=== PATIENT | male | born 1975 | race Caucasian/White ===

== ENCOUNTER 2020-06-09 22:49 | Emergency (ER) | payer SELFPAY ==
[~2020-06-09] VITALS: Ht 170.2 cm; Wt 86.2 kg
[~2020-06-09 22:49] MED LIST: ATEN50TA2 PO
[2020-06-09 22:54] VITALS: BP 132/72
--- NOTE | 2020-06-09 22:56 | NUR ---
To ED bed 12
--- NOTE | 2020-06-09 22:58 | NUR ---
44 Y/O MALE BIB SELF WITH C/O "LEFT SHOULDER DISLOCATION", PATIENT VERBALIZES HAVING "THROBBING" 10/10 NUMERIC PS. WAS NOTED WITH LIMITED RANGE OF MOTION. SENSORY INTACT AND CIRCULATION INTACT. RADIAL PULSES PALPABLE IN BOTH EXTREMITIES. PATIENT WAS OBSERVED CLENCHING/GUARDING LEFT ARM/SHOULDER. CAP REFILL LESS THAN 3 SEC. BED LOCKED AND IN LOWEST POSITION. MEDHX: HTN ALLX: NKA
--- NOTE | 2020-06-09 23:01 | NUR ---
pt taken to Rad via w/c.
[2020-06-09] MEDS ORDERED: fentaNYL citrate 0.05 MG/ML VIAL IVP ONE (23:15)
--- NOTE | 2020-06-09 23:25 | NUR ---
IV STARTED ON PATIENT, TOLERATED THE PROCEDURE WELL.
--- NOTE | 2020-06-09 23:30 | NUR ---
X RAY AT BEDSIDE.
--- NOTE | 2020-06-09 23:40 | NUR ---
ER MD AT BEDSIDE EVALUATING PATIENT.
[2020-06-10] MEDS ORDERED: KETOROLAC 15 MG/ML VIAL IVP ONE (00:45)
[2020-06-10] MEDS ORDERED: fentaNYL citrate 0.05 MG/ML VIAL IVP ONE (00:45)
--- NOTE | 2020-06-10 01:00 | NUR ---
ER MD AT BEDSIDE FOR PROCEDURE PT WAS MEDICATED PER ORDERS.
[2020-06-10 01:20] VITALS: BP 120/74
--- NOTE | 2020-06-10 01:20 | NUR ---
SLING SIZE LARGE PLACED ON PT L ARM, FASTENED TO SIZE
--- NOTE | 2020-06-10 01:54 | NUR ---
ERMD at bedside.
--- NOTE | 2020-06-10 02:01 | NUR ---
Patient medically cleared for discharge. Discharge instructions given to patient and verbalized understanding, questions answered. Copy of instructions given and RX of motrin, advised to follow up with PCP or return to the ED if symptoms worsen.Patient dressed in street clothes, ID band removed. Gait steady, ambulated out of the ED to private car.
== END 2020-06-10 02:01 | disposition home or self-care (01) ==
LOC: MED 22:49
DX: S43.005A Unspecified dislocation of left shoulder joint, initial encounter (principal); F17.210 Nicotine dependence, cigarettes, uncomplicated; I10 Essential (primary) hypertension; Z71.6 Tobacco abuse counseling; Z79.899 Other long term (current) drug therapy; X50.9XXA Other and unspecified overexertion or strenuous movements or postures, initial encounter; Y93.89 Activity, other specified; Y92.89 Other specified places as the place of occurrence of the external cause; Y99.8 Other external cause status
CPT/HCPCS: 23650; 73030; 96374; 96375; 96376; 99285; J1885; J3010